=== PATIENT | female | born 1950 | race Caucasian/White ===

== ENCOUNTER 2018-03-01 05:07 | Inpatient (IN) ==
[2018-03-01] MEDS ORDERED: Chlorhexidine Gluconate 2% 1 Pack (2 Cloths) TOPICAL ONE (05:42)
[2018-03-01] MEDS ORDERED: Metoprolol Tartrate 25 MG Tablet PO ONE (05:42)
[2018-03-01] MEDS ORDERED: Chlorhexidine 4% Topical 120 APPLIC/120 ML Bottle TOPICAL SCH (05:45)
[2018-03-01] MEDS ORDERED: Vancomycin Inj 1,000 MG in Sodium Chlor 0.9% Inj 250 ML IV.SIG SCH (06:00)
[2018-03-01] MEDS ORDERED: Dexamethasone Inj 20 MG/5 ML Vial IV.PUSH ONE (06:00)
[2018-03-01] MEDS ORDERED: Sodium Chlor 0.9% Inj 500 ML IV.SIG SCH (06:00)
[2018-03-01] MEDS ORDERED: ceFAZolin 2 GM Premix Inj 2 GM/50 ML PIGGYBACK IV.SIG SCH (06:00)
--- NOTE | 2018-03-01 06:57 | P.DCO ---
- Physical Therapy Physical Therapy: Gait training, Transfer training, bed to chair Hip: Total hip Right Lower Extremity Weight Bearing: Weight bearing as tolerated Right Lower Extremity Range of Motion: Active ROM - Nursing Dressing changes: Do not change dressing Additional instructions: First dressing change in the office - Certification Need for Home Health services: I have seen patient Tash Milligan Going on 03/01/18. My clinical findings support the need for the requested home health care services because: Need for Home Health Services: Limited ability to care for self, High risk of falls Homebound Certification: I certify that my clinical findings support that this patient is homebound because: Homebound Certification: Post-op weakness, Unsteady gait/balance
[2018-03-01] MEDS ORDERED: SODIUM CHLOR 0.9% IV.SIG SCH (07:00)
[2018-03-01] MEDS ORDERED: TRANEXAMIC ACID IV.SIG SCH (07:00)
[2018-03-01] MEDS ORDERED: Sodium Chlor 0.9% Inj 40 ML, Bupivacaine Liposo PF 1.3% Inj 20 ML P-ARTICULR SCH ×2 (07:00)
[2018-03-01] MEDS ORDERED: Aluminum/Magnesium/Simethacone Susp 30 ML UDC PO PRN (08:37)
[2018-03-01] MEDS ORDERED: Morphine Inj 4 MG/ML Vial IV.PUSH PRN (08:37)
[2018-03-01] MEDS ORDERED: Bisacodyl 10 MG Supp RECTAL PRN (08:37)
[2018-03-01] MEDS ORDERED: Post-op Orders (for Pharmacy) OTHER STA (08:37)
--- NOTE | 2018-03-01 08:41 | P.OP ---
- Preoperative Diagnosis (1) Osteoarthritis of right hip - Postoperative Diagnosis (1) Osteoarthritis of right hip Date of procedure: 03/01/18 Procedure: Right total hip arthroplasty Anesthesia: GETA Surgeon: Chris Villalpando MD Fitter Up: MARYCHUY Brenner The surgical procedure was assisted by my Advanced Registered Nurse Practitioner. My GM/SVP [employer] presence was necessary throughout this case for the manipulation and positioning of the surgical extremity. My GM/SVP [employer] was assisting me throughout the duration of this procedure. The skill set of an Advance Registered Nurse Practitioner was medically necessary to complete this procedure. During the surgical case, the surgical product sales consultant was working at the back table and the Advance Registered Nurse Practitioner was directly assisting me. Operation and Findings: IMPLANT DESCRIPTION: 1. [place] Gription Cup, acetabular size 48. 2. [place] AltrX polyethylene, neutral. 4. [place] femoral stem size 9, no collar, standard offset. 5. Femoral head/neck metal, 32, +1. ESTIMATED BLOOD LOSS: 300 cc. JUSTIFICATION FOR PROCEDURE: The patient has end-stage osteoarthritis to the hip. There is an attached conservative measures pathway form in the chart that describes the nonoperative measures that were undertaken prior to consideration of surgical management. The patient understood the risks and benefits of surgical management. See my office notes for further details. PROCEDURE: The patient was brought back to the operative theatre. Adequate anesthesia was obtained. The patient received intravenous vancomycin and Ancef. The patient was carefully placed on the operative table. The lower extremity was prepped and draped in the usual sterile fashion. Fluoroscopic images were obtained. We made a standard anterior incision over the hip. We dissected through the TFL fascia, exposing the anterior capsule. Arthrotomy was performed in a T-shaped fashion. The capsule was tagged with a #2 FiberWire. End-stage arthritis was identified. Osteotomy was performed through the femoral neck exposing the acetabulum. Remnants of the labrum were resected and osteophytes were removed. We sequentially reamed the acetabulum. We trialed the hip and placed the final cup into position. This was done under fluoroscopic guidance to obtain the appropriate inclination and anteversion. A manhole cover was placed into the acetabular component. We then placed the final polyethylene into position and confirmed that it was well seated. Capsular attachments on the calcar and the inner aspect of the greater trochanter were resected. On the proximal aspect of the femur we used a rongeur , box osteotome, canal finder, sequential broaches and lateralizing rasp. We calcar planed the proximal femur. Then thoroughly irrigated the wound. We trialed the hip with the appropriate size stem. We placed the final stem in to position and trialed again. The hip was stable while it was externally rotated 70 degrees when the leg was lowered to the floor. The final head was applied, and final fluoroscopic images were obtained. The wound was thoroughly irrigated again. Interarticular injection of liposomal bupivacaine was given. The capsule was closed with #2 FiberWire and #1 Vicryl. The deep fascia was closed with a #2 Stratafix, followed by 2-0 Vicryl in the skin and Dermabond dressing. Postop plan is to weight-bear as tolerated. DVT prophylaxis will be performed with SCDs, BOYD ambrocio, early mobilization, and aspirin (81 mg twice daily) Patient understands that if there are any adverse effects from this medicine to call the office immediately.
[2018-03-01] MEDS ORDERED: Senna/Docusate Sodium 8.6/50 MG Tablet PO SCH (09:00)
[2018-03-01] MEDS ORDERED: fentaNYL Citrate Inj 100 MCG/2 ML Ampul ONE ×2 (09:08)
[2018-03-01] MEDS ORDERED: *morphine SULFATE 10 MG/ML PERIprocedure ONLY ONE ×2 (09:15→09:38)
[2018-03-01] MEDS: Sod Chloride 0.9% Inj 1,000 ML IV.CONT SCH (09:18)
[2018-03-01] MEDS ORDERED: SODIUM CHLOR 0.9% IV.SIG ONE (09:30)
[2018-03-01] MEDS ORDERED: TRANEXAMIC ACID IV.SIG ONE (09:30)
--- NOTE | 2018-03-01 09:52 | XR ---
EXAM DATE: 03/01/2018 9:50 AM EDT AGE/SEX: 67 years / Female INDICATIONS: Post op right hip surgery. CLINICAL DATA: This is the patient's initial encounter. Patient reports that signs and symptoms have been present for 1 day and indicates a pain score of Nonresponsive. MEDICAL/SURGICAL HISTORY: Non-responsive. Non-responsive. COMPARISON: . FINDINGS: The patient is post right hip arthroplasty. Orthopedic hardware is in excellent position. The alignme nt is good. No acute fracture or complication is identified. CONCLUSION: Orthopedic hardware in excellent position. Electronically signed by: Paul Flores MD 03/01/2018 9:51 AM EDT
[2018-03-01] MEDS ORDERED: Loratadine 10 MG Tablet PO SCH (10:00)
[2018-03-01] MEDS ORDERED: hydroCHLOROthiazide 25 MG Tablet PO SCH (10:00)
[2018-03-01] MEDS: Multivitamin/Minerals Therapeutic Tablet PO SCH ×2 (10:56→20:51)
[2018-03-01] MEDS ORDERED: FLOVENT INH SCH (11:00)
[2018-03-01] MEDS ORDERED: [UNRECOGNIZED DRUG - OTHER] INH SCH (11:00)
[2018-03-01] MEDS ORDERED: SYSTANE EACH EYE SCH (13:00)
[2018-03-01] MEDS ORDERED: ceFAZolin 1 GM Premix Inj 1 GM/50 ML IV.SIG SCH ×2 (13:00→20:30)
[2018-03-01] MEDS ORDERED: [UNRECOGNIZED DRUG - OTHER] EACH EYE SCH (13:00)
--- NOTE | 2018-03-01 14:24 | XR ---
EXAM DATE: 03/01/2018 2:22 PM EDT AGE/SEX: 67 years / Female INDICATIONS: Right total hip replacement. CLINICAL DATA: This is the patient's initial encounter. Patient reports that signs and symptoms have been present for 1 day and indicates a pain score of Nonresponsive. MEDICAL/SURGICAL HISTORY: Non-responsive. Non-responsive. COMPARISON: No prior exams available for comparison. FINDINGS: The patient is status post a total hip arthroplasty. Prosthesis is well-seated. Alignment is anatomic . A fracture is not appreciated. CONCLUSION: Anatomic alignment. Aditya Flores MD FACR Electronically signed by: Aditya Flores MD 03/01/2018 2:22 PM EDT
[2018-03-01] MEDS: Loratadine 10 MG Tablet PO SCH (14:28)
[2018-03-01] MEDS: Senna/Docusate Sodium 8.6/50 MG Tablet PO SCH ×2 (14:29→20:51)
[2018-03-01] MEDS: hydroCHLOROthiazide 25 MG Tablet PO SCH (14:29)
[2018-03-01] MEDS: Olopatadine 0.1% Opth Drops 5 ML Bottle EACH EYE SCH (16:12)
[2018-03-01] MEDS: ceFAZolin 1 GM Premix Inj 1 GM/50 ML IV.SIG SCH (20:53)
[2018-03-01] MEDS ORDERED: Zolpidem Tartrate 5 MG Tablet PO PRN (21:00)
[2018-03-02] MEDS: ceFAZolin 1 GM Premix Inj 1 GM/50 ML IV.SIG SCH (03:42)
[2018-03-02] MEDS: Sod Chloride 0.9% Inj 1,000 ML IV.CONT SCH ×2 (03:43→10:00)
[2018-03-02] MEDS: Levothyroxine 75 MCG Tablet PO SCH (06:07)
[2018-03-02 06:57] LABS: Hemoglobin 10.3 gm/dL (11.6-15.3)
--- NOTE | 2018-03-02 07:29 | P.PNOP ---
Subjective Interval history: The patient is resting comfortably in bed in no acute distress. The patient reports her pain is managed. The patient has been ambulatory. The patient states she does feel as though she can go home today with home health. Physical Exam Vital signs: Vital Signs 03/01/18 09:03 03/01/18 09:15 03/01/18 09:28 Temperature 98.5 F Pulse Rate 58 L 51 L Respiratory Rate 17 11 L 8 L Blood Pressure 102/52 L 130/60 Pulse Oximetry 100 03/01/18 09:30 03/01/18 09:45 03/01/18 10:00 Temperature Pulse Rate 64 47 L 58 L Respiratory Rate 14 12 8 L Blood Pressure 110/73 94/50 L 113/67 Pulse Oximetry 100 99 100 03/01/18 10:15 03/01/18 10:30 03/01/18 10:45 Temperature 97.5 F L Pulse Rate 57 L 53 L 56 L Respiratory Rate 7 L 14 14 Blood Pressure 103/56 L 110/58 L 106/58 L Pulse Oximetry 97 99 100 03/01/18 11:00 03/01/18 11:09 03/01/18 11:15 Temperature Pulse Rate 59 L Respiratory Rate 12 20 16 Blood Pressure 101/54 L Pulse Oximetry 100 03/01/18 11:30 03/01/18 12:00 03/01/18 20:00 Temperature 97.5 F L 97.3 F L 97.8 F Pulse Rate 72 65 72 Respiratory Rate 14 18 17 Blood Pressure 102/57 L 116/65 111/65 Pulse Oximetry 100 97 100 03/02/18 00:00 03/02/18 04:00 Temperature 98.5 F 98.5 F Pulse Rate 80 82 Respiratory Rate 15 15 Blood Pressure 98/58 L 101/58 L Pulse Oximetry 100 98 Intake & Output 03/01/18 03/02/18 03/02/18 18:59 06:59 18:59 Intake Total 1630 / 1630 650 / 650 Output Total 300 / 300 Balance 1330 / 1330 650 / 650 Weight 57.3 kg 60.7 kg Intake: IV 350 / 350 50 / 50 Vancomycin Inj 1,000 MG In NS 250 / 250 Inj 250 ML @ 250 mls/hr IV.SIG [employer] [facility] Rx#:[id number] Ancef 1 GM Premix Inj 1 gm In 50 / 50 50 / 50 50 ml @ 100 mls/hr IV.SIG Q6H [facility] Rx#:[id number] Ancef 2 GM Premix Inj 2 gm In 50 / 50 50 ml @ 100 mls/hr IV.SIG [employer]GER [employer] [facility] Rx#:[id number] Oral 480 / 480 600 / 600 Anesthesia Amount 800 / 800 Output: Estimated Blood Loss 300 / 300 Other: # Voids 1 2 Date of Last Bowel Movement 02/28/18 02/28/18 # Bowel Movements 0 Narrative: The patient's dressing is clean, dry, and intact. EHL/TA/G are intact. 2+ pedal pulse. The patient's calf is soft and nontender. Sensation is intact to light touch distally. Results - Labs CBC & Chem 7: 03/02/18 05:30 Laboratory Results - last 24 hr 03/01/18 03/02/18 06:00 05:30 Hgb 10.3 L Hct 30.0 L Blood Type Recheck Required Antibody Screen Negative - Imaging Impressions Hip X-Ray 03/01/18 00:00 CONCLUSION: Anatomic alignment. Aditya Flores MD FACR Hip X-Ray 03/01/18 08:37 CONCLUSION: Orthopedic hardware in excellent position. - Procedures Right total hip arthroplasty Assessment and Plan - Problem List (1) Status post total hip replacement, right Code(s): Z96.641 - Presence of right artificial hip joint Status: Acute (2) Osteoarthritis of right hip Code(s): M16.11 - Unilateral primary osteoarthritis, right hip Status: Acute - Assessment and Plan POD #1: [Right] total hip arthroplasty 1. Weightbearing as tolerated on [right] lower extremity. 2. Aspirin 81 mg twice a day for DVT prophylaxis. 3. Ice as needed for swelling. 4. Stable per ortho for discharge to home health following today's class. 5. The patient will follow up with Dr. Villalpando and/or MARYCHUY More as previously scheduled.
[2018-03-02] MEDS ORDERED: Dexamethasone Inj 20 MG/5 ML Vial IV.PUSH ONE (08:00)
[2018-03-02] MEDS: Multivitamin/Minerals Therapeutic Tablet PO SCH ×2 (08:52→20:51)
[2018-03-02] MEDS: hydroCHLOROthiazide 25 MG Tablet PO SCH ×2 (08:52→08:54)
[2018-03-02] MEDS: Loratadine 10 MG Tablet PO SCH (08:52)
[2018-03-02] MEDS: Senna/Docusate Sodium 8.6/50 MG Tablet PO SCH ×2 (08:52→20:51)
[2018-03-02] MEDS: Olopatadine 0.1% Opth Drops 5 ML Bottle EACH EYE SCH (08:53)
[2018-03-03] MEDS: Sod Chloride 0.9% Inj 1,000 ML IV.CONT SCH ×2 (03:51→11:02)
[2018-03-03 05:39] LABS: Hematocrit 27.2 % (35.0-46.0); Hemoglobin 9.1 gm/dL (11.6-15.3)
[2018-03-03] MEDS: Levothyroxine 75 MCG Tablet PO SCH (05:59)
--- NOTE | 2018-03-03 08:01 | P.PNOP ---
Subjective Interval history: The patient states that her nausea is much better controlled today. She does feel much more comfortable. She says that her arthritic pain is all gone and she has only some minor soreness. Physical Exam Vital signs: Vital Signs 03/02/18 08:00 03/02/18 12:00 03/02/18 16:00 Temperature 97.8 F 98 F 98.8 F Pulse Rate 78 77 121 H Respiratory Rate 14 15 15 Blood Pressure 97/52 L 119/57 L 115/55 L Pulse Oximetry 97 97 95 03/02/18 20:00 03/03/18 00:00 Temperature 98.2 F 98.3 F Pulse Rate 81 111 H Respiratory Rate 15 16 Blood Pressure 107/59 L 141/76 H Pulse Oximetry 97 90 L Intake & Output 03/02/18 03/03/18 03/03/18 18:59 06:59 18:59 Intake Total 1250 / 1250 350 / 350 Balance 1250 / 1250 350 / 350 Weight 58 kg Intake: Oral 1250 / 1250 350 / 350 Other: # Voids 4 2 Date of Last Bowel Movement 03/01/18 03/01/18 03/01/18 # Bowel Movements 0 Narrative: The right hip is dressed. She has some mild diffuse ecchymosis. There is a little bit of swelling. There is no drainage. There is no erythema surrounding the dressing. She has no calf swelling at all. She moves the toes well. There is no tenderness of the calf. Results - Labs CBC & Chem 7: 03/03/18 05:10 Laboratory Results - last 24 hr 03/03/18 05:10 Hgb 9.1 L Hct 27.2 L - Procedures Right total hip arthroplasty Assessment and Plan - Problem List (1) Status post total hip replacement, right Code(s): Z96.641 - Presence of right artificial hip joint Status: Acute (2) Osteoarthritis of right hip Code(s): M16.11 - Unilateral primary osteoarthritis, right hip Status: Acute - Assessment and Plan POD #2: Right total hip arthroplasty 1. Weightbearing as tolerated on [right] lower extremity. 2. Aspirin 81 mg twice a day for DVT prophylaxis. 3. The patient is much improved compared to yesterday. She should be able to get discharged today. 4. Stable per ortho for discharge to home health following today's class. 5. The patient will follow up with Dr. Villalpando and/or MARYCHUY More as previously scheduled.
[2018-03-03] MEDS: Olopatadine 0.1% Opth Drops 5 ML Bottle EACH EYE SCH (09:20)
[2018-03-03] MEDS: Senna/Docusate Sodium 8.6/50 MG Tablet PO SCH (09:20)
[2018-03-03] MEDS: hydroCHLOROthiazide 25 MG Tablet PO SCH (09:20)
[2018-03-03] MEDS: Multivitamin/Minerals Therapeutic Tablet PO SCH (09:20)
[2018-03-03] MEDS: Loratadine 10 MG Tablet PO SCH (09:20)
[2018-03-03 09:31] VITALS: O2SAT 99
[2018-03-03 12:15] VITALS: BP 109/55; PULSE 84; RESP 16; TEMP 98.2
--- NOTE | 2018-03-03 16:51 | P.DS ---
Date of admission: 03/01/18 05:07 Primary care physician: Dmitriy Nichols MD Attending physician on discharge: Chris Villalpando Anticipated date of discharge: 03/02/18 Brief History from admission: The patient was admitted to the hospital for severe OA of the right hip to have a right DEX DS: Diagnosis - Discharge Diagnosis (1) Status post total hip replacement, right Status: Acute (2) Osteoarthritis of right hip Status: Acute DS: Summary Hospital Course: The patient was admitted to the hospital for severe osteoarthritis of the [right ] hip to have a [right] total hip arthroplasty. The patient's surgery went well with no complication. The patient is on a [regular] diet. The patient's DVT prophylaxis includes use of [ASA 81 mg BID]. The patient is weightbearing as tolerated. The patient was discharged [home with home health] and will follow up in the office with Dr. Villalpando and/or MARYCHUY More as previously scheduled. - Time Spent with Patient Total time spent providing and/or coordinating discharge services: Greater than 30 minutes - Quality: VTE Deep Vein Thrombosis/Pulmonary Embolism Present on Admission: No Exam Vital signs: Vital Signs 03/02/18 20:00 03/03/18 00:00 03/03/18 08:00 Temperature 98.2 F 98.3 F 98.6 F Pulse Rate 81 111 H 76 Respiratory Rate 15 16 16 Blood Pressure 107/59 L 141/76 H 123/57 L Pulse Oximetry 97 90 L 99 03/03/18 11:34 03/03/18 12:00 Temperature 98.2 F Pulse Rate 84 Respiratory Rate 18 16 Blood Pressure 109/55 L Pulse Oximetry 99 Intake & Output 03/02/18 03/03/18 03/03/18 18:59 06:59 18:59 Intake Total 1250 / 1250 350 / 350 Balance 1250 / 1250 350 / 350 Weight 58 kg Intake: Oral 1250 / 1250 350 / 350 Other: # Voids 4 2 Date of Last Bowel Movement 03/01/18 03/01/18 03/01/18 # Bowel Movements 0 Narrative: The patient's dressing is clean, dry, and intact. EHL/TA/G are intact. 2+ pedal pulse. The patient's calf is soft and nontender. Sensation is intact to light touch distally. Results Procedures completed during hospitalization: Right total hip arthroplasty Labs on day of discharge: Labs from last 24 hours 03/03/18 05:10 Hgb 9.1 L Hct 27.2 L - Impressions ITS Impressions Hip X-Ray 03/01/18 08:37 CONCLUSION: Orthopedic hardware in excellent position. Discharge Plan - Discharge Disposition Patient Disposition: W/Home Health Service - Discharge Condition Condition: Stable - Discharge Order Discharge Orders: Discharge Order (Routine); Ordered 03/01/18 Ordered By: Paul Davis - Discharge Details Anticipated Discharge Date: 03/03/18 - Physicians Team Primary Care Provider: Dmitriy Nichols Attending Provider: Chris Villalpando Other Providers: [facility] - Rxs /Orders / Referrals /Forms Prescriptions: Continue albuterol sulfate [Ventolin HFA] 90 mcg/actuation Hfa Aerosol Inhaler 1 puff INHALATION Q4-6H PRN (Reason: Shortness Of Breath) calcium citrate-vitamin D3 315-200 mg-unit Tablet 2 tab PO DAILY diphenhydramine HCl [Benadryl] 25 mg Capsule 25 mg PO HS PRN (Reason: Itching/INSOMNIA) fluticasone [Flovent Diskus] 50 mcg/actuation Blister With Device 1 inh INHALATION Q12H glucosamine sulfate [Glucosamine] 500 mg Tablet 500 mg PO BID hydrochlorothiazide 25 mg Tablet 25 mg PO DAILY ketotifen fumarate [Zaditor] 0.025 % (0.035 %) Drops 1 drp OPHTHALMIC (EYE) DAILY levothyroxine 75 mcg Tablet 75 mcg PO DAILY loratadine [Claritin] 10 mg Tablet 10 mg PO DAILY losartan 25 mg Tablet 25 mg PO DAILY magnesium 250 mg Tablet 250 mg PO DAILY [id number] K [Adults Multivitamin] 18 mg iron-400 mcg-25 mcg Tablet 1 tab PO DAILY peg 400-propylene glycol (PF) [Systane (PF)] 0.4-0.3 % Dropperette 1 drp OPHTHALMIC (EYE) DAILY sumatriptan succinate 50 mg Tablet 50 mg PO Q2-4H PRN (Reason: Headache) Discontinued turmeric root extract 500 mg Capsule 500 mg PO DAILY Ambulatory Orders / Order Sets / DME: Adjustable Commode 3-in-1 (1 each) (Routine) Location: Determined by Patient Ordered By: Paul S Winecoff Walker With Front Wheels (1 each) (Routine) Location: Determined by Patient Ordered By: Paul Davis Referrals: Chris Villalpando MD [Physician] - See Instructions (F/U in the office as previously scheduled with Dr. Villalpando or Darci Davis, EUNICE) Dmitriy Nichols MD [Primary Care Provider] - See Instructions - Discharge Instructions Patient Printed Instructions: Narcotic Pain Management (DC), Fall Prevention ( DC), Total Hip Replacement (DC), Deep Vein Thrombosis Prevention (DC) Additional Instructions: TAKE MEDS PRESCRIBED ATTEND ALL FOLLOW UP APPOINTMENTS OR CALL OFFICE TO SCHEDULE - Post Discharge Care Plan Care Plan Goals: Your Health Problems: Goals to Promote Your Health: * To prevent worsening of your condition * To maintain your health at the optimal level Directions to Meet Your Goals: * Take your medications as prescribed * Follow your dietary instruction * Follow activity as directed * Keep your appointments as scheduled * Take your immunizations and boosters as scheduled * If your symptoms worsen call your PCP * If no PCP go to Urgent Care or Emergency Room Smoking is dangerous to your health. Avoid second hand smoke. You may reach the 24-hour crisis hotline for domestic abuse at .
== END 2018-03-03 16:16 | disposition home health service (06) ==
LOC: HSDI 05:07 → N06 12:06 → UNDODISIN 03-03 14:44
PROVIDERS: ADMIT Orthopaedic Surgery; ATTEND Orthopaedic Surgery